=== PATIENT | female | born 1950 | race Hispanic/Latino ===

== ENCOUNTER 2018-11-11 09:44 | Outpatient (CLI) | payer BC ==
--- NOTE | 2018-11-11 12:28 | BD ---
BONE DENSITOMETRY USING DEXA: HISTORY: Postmenopausal screening for osteoporosis. LUMBAR SPINE BMD (g/cm2) T-SCORE Z-SCORE L1 0.762 -2.1 -0.4 L2 0.802 -2.1 -0.2 L3 0.720 -3.3 -1.3 L4 0.791 -2.5 -0.4 TOTAL 0.769 -2.5 -0.6 NECK 0.632 -2.0 -0.3 TOTAL 0.845 -0.8 0.6 IMPRESSION: Osteoporosis. POS: OFF
--- NOTE | 2018-11-11 12:48 | RAD ---
RADIOGRAPH CHEST 2 VIEWS: HISTORY: 68-year-old female with hypersensitivity pneumonitis and cough. FINDINGS: There is no air space density, pulmonary edema, pleural effusion, pneumothorax, or cardiomegaly. IMPRESSION: No acute cardiopulmonary findings. leonela POS: PERRIH
== END 2018-11-11 09:45 | disposition home or self-care (01) ==
LOC: BICMAMMO 09:44
PROVIDERS: ATTEND Family Medicine
DX: Z12.31 Encounter for screening mammogram for malignant neoplasm of breast (principal); Z13.820 Encounter for screening for osteoporosis; M81.0 Age-related osteoporosis without current pathological fracture; R05 Cough; Z85.3 Personal history of malignant neoplasm of breast
CPT/HCPCS: 71046; 77063; 77067; 77080

== ENCOUNTER 2023-06-06 13:50 | Outpatient (CLI) | payer BC | END 2023-06-06 13:51 | disposition home or self-care (01) | LOC: BICMAMMO 13:50 | PROVIDERS: ATTEND Family Medicine | DX: Z12.31 Encounter for screening mammogram for malignant neoplasm of breast (principal); Z13.820 Encounter for screening for osteoporosis; M81.0 Age-related osteoporosis without current pathological fracture; M85.852 Other specified disorders of bone density and structure, left thigh; M85.851 Other specified disorders of bone density and structure, right thigh; Z78.0 Asymptomatic menopausal state; Z85.3 Personal history of malignant neoplasm of breast; Z90.12 Acquired absence of left breast and nipple | CPT/HCPCS: 77063; 77067; 77080 ==

== ENCOUNTER 2023-09-25 15:47 | Outpatient (CLI) | payer BC | END 2023-09-25 15:48 | disposition home or self-care (01) | LOC: SCSRAD 15:47 | DX: J98.8 Other specified respiratory disorders (principal) | CPT/HCPCS: 71046 ==

== ENCOUNTER 2024-11-20 10:05 | Outpatient (CLI) | payer BC | END 2024-11-20 10:06 | disposition home or self-care (01) | LOC: BICMAMMO 10:05 | PROVIDERS: ATTEND Family Medicine | DX: Z12.31 Encounter for screening mammogram for malignant neoplasm of breast (principal); Z85.3 Personal history of malignant neoplasm of breast; Z98.890 Other specified postprocedural states | CPT/HCPCS: 77063; 77067 ==